=== PATIENT | female | born 2000 | race Caucasian/White ===

== ENCOUNTER 2018-04-03 23:55 | Emergency (ER) | payer BC, SELFPAY ==
[2018-04-03 23:59] VITALS: BP 134/70; PULSE 74; RESP 20; TEMP 36.5; O2SAT 100
[2018-04-04 00:12] LABS: Bilirubin Negative (Negative); Blood Moderate (Negative); Clarity Sl Cloudy; Glucose Negative (Negative); Ketones Negative (Negative); Leukocyte Esterase Small (Negative); Nitrite Negative (Negative); Urobilinogen 0.2 EU/dL (Up TO 0.2); pH 7.5 (5-8)
--- NOTE | 2018-04-04 00:15 | W.ED.GENAD ---
Discharge Plan Disposition Patient Disposition: HOME Condition: Good Discharge Details Chief Complaint: Urinary Clinical Impression: UTI (urinary tract infection) Primary Care Provider: Camacho Uribe ED Provider: Miko Vale Home Meds and New Rx's Prescriptions: New phenazopyridine 100 mg tablet 100 mg PO TID Qty: 5 RF: 0 nitrofurantoin monohyd/m-cryst 100 mg capsule 100 mg PO BID Qty: 9 RF: 0 Continue triamcinolone acetonide 15 GM cream 1 applic Topical BID PRN Qty: 30 RF: 0 albuterol sulfate [ProAir HFA] 8.5 GM HFA aerosol inhaler 2 puff Inhalation q 4hr-6 hr prn Qty: 1 RF: 0 norgestimate-ethinyl estradiol [TriNessa Lo] 0.18/0.215/0.25 mg-25 mcg tablet 1 tab PO DAILY Qty: 28 RF: 2 Discharge Instructions Instructions: Phenazopyridine (By mouth), Nitrofurantoin Combination (By mouth), Urinary Tract Infection in Women (ED) Additional Instructions: Follow-up with primary care next week if not better. Return to ED for fever, vomiting, flank pain. Referrals: Camacho Uribe. [Primary Care Provider] - Medical Decision Making Patient presenting with urinary tract infection suggestive of cystitis. She has no systemic symptoms. Urine test is negative. Urine dip positive for leukocytes and blood. Urine micro is positive with white cells and bacteria and very few epithelial cells. Patient will be started on Pyridium and Macrobid. Follow-up with primary care next week if not better. Return to ED for fever, vomiting, flank pain. Lab Data Lab results reviewed: Yes I reviewed the patient's lab results. HPI General Mode of arrival: ambulatory. Date/Time Provider Initiated Documentation: 04/04/18 00:12. Limitations to Documentation: no limitations. Information obtained by: patient. HPI Narrative: Patient presents with suprapubic pain and urinary discomfort. Symptoms started this morning. She has had bladder infections before and this feels the same. She has had no fevers or chills. She has no flank pain or abdominal pain. She has no vaginal bleeding or discharge. Related Data Home Medications Medication Instructions Recorded Confirmed albuterol sulfate [ProAir HFA] 2 puff INHALATION q 4hr-6 hr prn 07/25/17 04/04/18 #1 inhaler triamcinolone acetonide 1 applic TOPICAL BID PRN #30 gram 07/25/17 04/04/18 norgestimate 0.18 mg/0.215 mg/0.25 1 tab PO DAILY #28 tab 03/20/18 04/04/18 mg-ethinyl estradiol 25 mcg tablet nitrofurantoin monohyd/m-cryst 100 mg PO BID #9 cap 04/04/18 phenazopyridine 100 mg PO TID #5 tab 04/04/18 Previous Rx's Medication Instructions Recorded norgestimate 0.18 mg/0.215 mg/0.25 1 tab PO DAILY #28 tab 03/20/18 mg-ethinyl estradiol 25 mcg tablet nitrofurantoin monohyd/m-cryst 100 mg PO BID #9 cap 04/04/18 phenazopyridine 100 mg PO TID #5 tab 04/04/18 Allergies Allergy/AdvReac Type Severity Reaction Status Date / Time human papillomavirus AdvReac Intermediate ARM Unverified 04/04/18 00:01 vaccine, quadr NUMBNESS, DIZZINESS, ALMOST PASSED OUT General Stated Complaint: Urinary YAIR: 4 Review of Systems Constitutional Denies chills and Denies fever(s) Gastrointestinal Denies abdominal pain, Denies diarrhea, Denies nausea and Denies vomiting Genitourinary Denies hematuria, Reports dysuria, Denies pelvic pain and Denies flank pain PFSH Family History Mother No problems noted. Father No problems noted. Sister No problems noted. Brother No problems noted. Grandfather Depression Heart disease Grandfather Essential hypertension Cerebrovascular accident Grandmother Essential hypertension Hyperlipidemia Neoplasm Grandmother Essential hypertension Cerebrovascular accident FAMILY HISTORY Gout Migraine Kidney stones Social History Smoking/Tobacco Use Status: Never Exam Const General: cooperative, healthy appearing and comfortable Orientation: alert and oriented x3 HENMT Head: normocephalic and atraumatic GI Palpation: soft, not firm and nontender Back/Spine/Pelvis Back: no CVA tenderness Neuro General: alert, oriented x3, no focal motor deficits and CN's II-XI intact bilaterally Course Vital Signs Temperature 97.7 F 04/03/18 23:59 Pulse 74 04/03/18 23:59 Respiratory Rate 20 04/03/18 23:59 Blood Pressure 134/70 04/03/18 23:59 Pulse Oximetry 100 04/03/18 23:59 Temperature 97.7 F 04/03/18 23:59 Temperature Source Temporal Artery Scan 04/03/18 23:59 Pulse 74 04/03/18 23:59 Respiratory Rate 20 04/03/18 23:59 Respiratory Effort Non-Labored 04/04/18 00:01 Blood Pressure 134/70 04/03/18 23:59 Pulse Oximetry 100 04/03/18 23:59 Oxygen Delivery Method Room Air 04/03/18 23:59 Oxygen Flow Rate 0 04/03/18 23:59 Pain Level 7 04/04/18 00:02 Lab/Test Results Lab/Test Results: Laboratory Tests Range/Units 04/04/18 00:04 Urine Color (Yellow) Yellow Urine Clarity Sl cloudy Urine pH (5-8) 7.5 Ur Specific [place] (1.005-1.025) 1.020 Urine Protein (Negative) mg/dL Negative Urine Ketones (Negative) mg/dL Negative Urine Blood (Negative) Moderate H Urine Nitrite (Negative) Negative Urine Bilirubin (Negative) Negative Urine Urobilinogen (Up TO 0.2) EU/dL 0.2 Ur Leukocyte Esterase (Negative) Small H Urine Glucose (Negative) mg/dL Negative POC- Test(urine) Negative
[2018-04-04 00:18] LABS: Bacteria Moderate HPF (Negative); C & S Indicated? Yes; Casts Negative LPF (Negative); Crystals Negative HPF (Negative); Epithelial Cells Few HPF (Negative); Mucus Negative (Negative); WBC >50 HPF (0-5)
--- NOTE | 2018-04-04 00:20 | ED.GENADUL_ITS ---
Discharge Plan Disposition Patient Disposition: HOME Condition: Good Discharge Details Chief Complaint: Urinary Clinical Impression: UTI (urinary tract infection) Primary Care Provider: Camacho Uribe ED Provider: Miko Vale Home Meds and New Rx's Prescriptions: New phenazopyridine 100 mg tablet 100 mg PO TID Qty: 5 RF: 0 nitrofurantoin monohyd/m-cryst 100 mg capsule 100 mg PO BID Qty: 9 RF: 0 Continue triamcinolone acetonide 15 GM cream 1 applic Topical BID PRN Qty: 30 RF: 0 albuterol sulfate [ProAir HFA] 8.5 GM HFA aerosol inhaler 2 puff Inhalation q 4hr-6 hr prn Qty: 1 RF: 0 norgestimate-ethinyl estradiol [TriNessa Lo] 0.18/0.215/0.25 mg-25 mcg tablet 1 tab PO DAILY Qty: 28 RF: 2 Discharge Instructions Instructions: Phenazopyridine (By mouth), Nitrofurantoin Combination (By mouth) , Urinary Tract Infection in Women (ED) Additional Instructions: Follow-up with primary care next week if not better. Return to ED for fever, vomiting, flank pain. Referrals: Camacho Uribe. [Primary Care Provider] - Medical Decision Making Patient presenting with urinary tract infection suggestive of cystitis. She has no systemic symptoms. Urine test is negative. Urine dip positive for leukocytes and blood. Urine micro is positive with white cells and bacteria and very few epithelial cells. Patient will be started on Pyridium and Macrobid. Follow-up with primary care next week if not better. Return to ED for fever, vomiting, flank pain. Lab Data Lab results reviewed: Yes I reviewed the patient's lab results. HPI General Mode of arrival: ambulatory . Date/Time Provider Initiated Documentation: 04/04/18 00:12 . Limitations to Documentation: no limitations . Information obtained by: patient . HPI Narrative: Patient presents with suprapubic pain and urinary discomfort. Symptoms started this morning. She has had bladder infections before and this feels the same. She has had no fevers or chills. She has no flank pain or abdominal pain. She has no vaginal bleeding or discharge. Related Data Home Medications Medication Instructions Recorded Confirmed albuterol sulfate [ProAir HFA] 2 puff INHALATION q 4hr-6 hr prn 07/25/17 #1 inhaler triamcinolone acetonide 1 applic TOPICAL BID PRN #30 gram 07/25/17 04/04/18 norgestimate 0.18 mg/0.215 mg/0.25 1 tab PO DAILY #28 tab 03/20/18 04/04/18 mg-ethinyl estradiol 25 mcg tablet nitrofurantoin monohyd/m-cryst 100 mg PO BID #9 cap 04/04/18 phenazopyridine 100 mg PO TID #5 tab 04/04/18 Previous Rx's Medication Instructions Recorded norgestimate 0.18 mg/0.215 mg/0.25 1 tab PO DAILY #28 tab 03/20/18 mg-ethinyl estradiol 25 mcg tablet nitrofurantoin monohyd/m-cryst 100 mg PO BID #9 cap 04/04/18 phenazopyridine 100 mg PO TID #5 tab 04/04/18 Allergies Allergy/AdvReac Type Severity Reaction Status Date / Time human papillomavirus AdvReac Intermediate ARM Unverified 04/04/18 00:01 vaccine, quadr NUMBNESS, DIZZINESS, ALMOST PASSED OUT General Stated Complaint: Urinary YAIR: 4 Review of Systems Constitutional Denies chills and Denies fever(s) Gastrointestinal Denies abdominal pain, Denies diarrhea, Denies nausea and Denies vomiting Genitourinary Denies hematuria, Reports dysuria, Denies pelvic pain and Denies flank pain PFSH Family History Mother No problems noted. Father No problems noted. Sister No problems noted. Brother No problems noted. Grandfather Depression Heart disease Grandfather Essential hypertension Cerebrovascular accident Grandmother Essential hypertension Hyperlipidemia Neoplasm Grandmother Essential hypertension Cerebrovascular accident FAMILY HISTORY Gout Migraine Kidney stones Social History Smoking/Tobacco Use Status: Never Exam Const General: cooperative, healthy appearing and comfortable Orientation: alert and oriented x3 HENMT Head: normocephalic and atraumatic GI Palpation: soft, not firm and nontender Back/Spine/Pelvis Back: no CVA tenderness Neuro General: alert, oriented x3, no focal motor deficits and CN's II-XI intact bilaterally Course Vital Signs Temperature 97.7 F 04/03/18 23:59 Pulse 74 04/03/18 23:59 Respiratory Rate 20 04/03/18 23:59 Blood Pressure 134/70 04/03/18 23:59 Pulse Oximetry 100 04/03/18 23:59 Temperature 97.7 F 04/03/18 23:59 Temperature Source Temporal Artery Scan 04/03/18 23:59 Pulse 74 04/03/18 23:59 Respiratory Rate 20 04/03/18 23:59 Respiratory Effort Non-Labored 04/04/18 00:01 Blood Pressure 134/70 04/03/18 23:59 Pulse Oximetry 100 04/03/18 23:59 Oxygen Delivery Method Room Air 04/03/18 23:59 Oxygen Flow Rate 0 04/03/18 23:59 Pain Level 7 04/04/18 00:02 Lab/Test Results Lab/Test Results: Laboratory Tests Range/Units 04/04/18 00:04 Urine Color (Yellow) Yellow Urine Clarity Sl cloudy Urine pH (5-8) 7.5 Ur Specific [place] (1.005-1.025) 1.020 Urine Protein (Negative) mg/dL Negative Urine Ketones (Negative) mg/dL Negative Urine Blood (Negative) Moderate H Urine Nitrite (Negative) Negative Urine Bilirubin (Negative) Negative Urine Urobilinogen (Up TO 0.2) EU/dL 0.2 Ur Leukocyte Esterase (Negative) Small H Urine Glucose (Negative) mg/dL Negative POC- Test(urine) Negative
[2018-04-04] MEDS: Phenazopyridine 100 MG TAB PO (00:29)
[2018-04-04] MEDS: MacroBID 100 MG CAP PO (00:29)
[2018-04-04 00:30] VITALS: BP 134/70; PULSE 74; RESP 20; TEMP 36.5; O2SAT 100
== END 2018-04-04 00:39 | disposition home or self-care (01) ==
PROVIDERS: Emergency Provider Emergency Medicine; PCP Family Medicine
DX: N39.0 Urinary tract infection, site not specified (principal); Z87.440 Personal history of urinary (tract) infections
CPT/HCPCS: 81025; 87077; 99283; 81003; 81015; 87086; 87186

== ENCOUNTER 2019-12-20 12:19 | Outpatient (REF) | payer BC, SELFPAY ==
--- NOTE | 2019-12-20 11:00 | PAPFT_PTH ---
PATIENT: Namita Sapp LOC: [facility] U#:[id number] AGE/SX: 19/F ROOM: RE12/20/[address]: Angelica Thomas NP : 2000 BED: DIS: 12/20/2019 SPEC #: [id number] RECD: 12/20/19 12:56 STATUS: MITUL REApril #: [id number] SHELIA: 12/20/19 11:[address]: Angelica Thomas NP DEPT: [facility] Cytology RECD BY: Adrienne Black ENTERED: 12/20/19 12:56 SP TYPE: PAPFT ANGEL DR: Camacho Uribe MD Tissues: 1 - CX/ENDOCX FOR PAP SMEARS Procedures: PAP THIN PREP/UVM Screening Comments: [id number]
== END 2019-12-20 12:39 ==
LOC: LBN 12:19
PROVIDERS: PCP Family Medicine; Visit Provider Nurse Practitioner Women's Health
DX: Z12.4 Encounter for screening for malignant neoplasm of cervix (principal)
CPT/HCPCS: 88142

== ENCOUNTER 2021-01-09 08:14 | Emergency (ER) | payer BC, SELFPAY ==
--- NOTE | 2021-01-09 08:15 | RT.EKG_ITS ---
APPROVED REPORT Exam: Resting ECG Reason for Exam: Syncope Patient Location: E HR:91 bpm ECG Measurements Heart Rate 91 AXIS TN 114 P 61 QRSd 79 QRS 63 QT 364 T -5 QTc 448 Conclusion Sinus rhythm...normal P axis, V-rate 60- 99. No STEMI. T wave inversion in lead III. I have reviewed and interpreted ECG and agree with software generated interpretation.
[2021-01-09 08:22] VITALS: BP 132/73; PULSE 92; RESP 18; TEMP 36.6; O2SAT 100
[2021-01-09 08:24] VITALS: RESP 18
--- NOTE | 2021-01-09 08:26 | W.ED.GENAD ---
Discharge Plan Disposition Patient Disposition: HOME Condition: Stable Discharge Details Clinical Impression: Syncope Primary Care Provider: Camacho Uribe ED Provider: Delphine Larsen Home Meds and New Rx's Prescriptions: Continued norgestimate-ethinyl estradiol 0.18/0.215/0.25 mg-25 mcg tablet 1 tab PO DAILY Qty: 84 RF: 5 No Action albuterol sulfate [ProAir HFA] 90 mcg/actuation HFA aerosol inhaler 2 puff Inhalation q 4hr-6 hr prn Qty: 1 RF: 0 triamcinolone acetonide 0.5 % cream 1 applic Topical BID PRN Qty: 30 RF: 0 Discharge Instructions Instructions: Dehydration (ED), Syncope (ED) Additional Instructions: Follow up with primary care provider in 3-5 days. Return to ED sooner if any worsening or concerns. Increase oral fluids. Please take Tylenol or Ibuprofen with food every 4-6 hours as needed for pain and swelling. Please return for any additional syncopal episodes, new symptoms such as fever, headache, worsening dizziness, chest pain shortness of breath or any concerns. Referrals: Camacho Uribe. [Primary Care Provider] - 1 week Medical Decision Making 20-year-old female presents to the ER with chief complaint of syncope which occurred this morning. Patient states that she was out in the sun yesterday sustaining first-degree sunburn on her back woke up this morning to go to the bathroom was sitting on the toilet and had a syncopal episode. Patient states that she did not actually fall but she was lowered to the floor by her fianc?. Denies any head injury did not hit her head. Denies any neck or back pain. She has no complaints of pain upon arrival but does complain of some dizziness. Last menstrual period was approximately 3 weeks ago. She has a past medical history of asthma atopic dermatitis. EKG was reviewed by Arline Lindo ER attending, please see her official report. Normal sinus rhythm. There is some flipped T waves in lead III. CBC shows slightly elevated white blood cell count at 14.31, absolute neutrophils 10.92, this could be due to recent sunburn and syncopal episode. However cannot exclude infectious process at this time. Anion gap 12.4, BUN 10 creatinine 1.1 GFR greater than 60 glucose 107 calcium 8.3. Initial troponin is less than 0.05. Urinalysis shows 30 protein moderate blood 5-10 RBCs. No leukocytes no nitrites. I did consider head CT however patient not complaining of headache at this time and denies any head injury with episode. Dizziness improved with meclizine so CT was deferred. Patient reevaluation: She reports feeling better approximately 500 cc of normal saline has infused. Patient has received 25 mg of meclizine which patient reports has improved her symptoms somewhat. Discussed labs with patient who verbalizes understanding. Will re-eval after fluids are done infusing. Second patient reevaluation. Fluids are done, patient reports feeling improved. Denies dizziness currently. Remained hemodynamically stable throughout stay denies headache or any other complaints at this time. I did discuss follow-up with PCP in the next 3 to 5 days due to elevated white blood cell count, discussed strict return instructions patient verbalized understanding. HPI General Mode of arrival: ambulatory. Date/Time Provider Initiated Documentation: 01/09/21 08:14. Limitations to Documentation: no limitations. Information obtained by: patient, RN notes reviewed and old records reviewed. HPI Narrative: 20-year-old female presents to the ER with chief complaint of syncope which occurred this morning. Patient states that she was out in the sun yesterday sustaining first-degree sunburn on her back woke up this morning to go to the bathroom was sitting on the toilet and had a syncopal episode. Patient states that she did not actually fall but she was lowered to the floor by her fianc?. Denies any head injury did not hit her head. Denies any neck or back pain. She has no complaints of pain upon arrival but does complain of some dizziness. Last menstrual period was approximately 3 weeks ago. She has a past medical history of asthma atopic dermatitis. Related Data Home Medications Medication Instructions Recorded Confirmed albuterol sulfate 90 mcg/actuation 2 puff INHALATION q 4hr-6 hr prn 07/21/18 01/09/21 aerosol inhaler #1 inhaler triamcinolone acetonide 0.5 % 1 applic TOPICAL BID PRN #30 gm 12/09/18 01/09/21 topical cream norgestimate 0.18 mg/0.215 mg/0.25 1 tab PO DAILY #84 tab 12/20/19 01/09/21 mg-ethinyl estradiol 25 mcg tablet Previous Rx's Medication Instructions Recorded albuterol sulfate 90 mcg/actuation 2 puff INHALATION q 4hr-6 hr prn 07/21/18 aerosol inhaler #1 inhaler triamcinolone acetonide 0.5 % 1 applic TOPICAL BID PRN #30 gm 12/09/18 topical cream norgestimate 0.18 mg/0.215 mg/0.25 1 tab PO DAILY #84 tab 12/20/19 mg-ethinyl estradiol 25 mcg tablet Allergies Allergy/AdvReac Type Severity Reaction Status Date / Time human papillomavirus AdvReac Intermediate ARM Unverified 01/09/21 08:26 vaccine, quadr NUMBNESS, DIZZINESS, ALMOST PASSED OUT General Stated Complaint: Dizzy/Sync YAIR: 3 Review of Systems Narrative: Constitutional: Negative for weight loss, alert and oriented, well groomed, normal body habitus, appears comfortable. HEENT: Denies headaches, blurry vision, nasal discharge, sore throat, trouble swallowing. Chest: Denies chest pain, palpitations, irregular rhythm, hypertension. Respiratory: Denies Shortness of breath, cough, hemoptysis. GI: Denies abdominal pain, nausea, vomiting, diarrhea, constipation. : Denies dysuria, hematuria, flank pain, rectal bleeding. Neuro: Denies blurry vision, weakness, headache or facial numbness. Positive dizziness and syncopal episode. Hematologic: Denies easy bruising, intolerance to heat or cold, hair loss. [facility] Medical History Asthma Oral contraceptive use Family History Mother No problems noted. Father No problems noted. Sister No problems noted. Brother No problems noted. 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 Appears stated age. Normal body habitus. Head: Normocephalic, no trauma. Eyes: Pupils PERRLA, Red reflex noted, EOM's intact. Eyelids symmetrical without lesions, discharge, or swelling. ENT: Bilateral TM's WNL, External ear normal to inspection, no mastoid TTP, swelling, or erythema, Nasal turbinates WNL, no nasal discharge. Normal dentition, Posterior pharynx WNL, no exudate. Chest: RRR, Normal S1, S2, distal pulses intact. Resp: Lungs clear to auscultation bilaterally, no wheezes, rales, or rhonchi. Abdomen: Soft, non-distended, non-tender to palpation all 4 quadrants. Musculoskeletal: Normal gait, 5/5 strength to all four extremities. Skin: First-degree sunburn noted to her back. Capillary refill less than 2 sec. Neurologic: Cranial nerves II-XII intact. Alert and oriented x 3. DTR's intact. Hematologic/Lymphatic: No ecchymosis, no lymphadenopathy. Course Vital Signs Vital signs: Vital Signs Temperature 36.6 C 01/09/21 08:22 Pulse 92 H 01/09/21 08:22 Respiratory Rate 18 01/09/21 08:22 Blood Pressure 132/73 01/09/21 08:22 Pulse Oximetry 100 01/09/21 08:22 Temperature 36.6 C 01/09/21 08:22 Temperature Source Skin 01/09/21 08:22 Pulse 92 H 01/09/21 08:22 Respiratory Rate 18 01/09/21 08:24 Respiratory Effort Non-Labored 01/09/21 08:24 Respiratory Depth Normal 01/09/21 08:24 Respiratory Pattern Normal 01/09/21 08:24 Blood Pressure 132/73 01/09/21 08:22 Blood Pressure Position Sitting 01/09/21 08:22 Pulse Oximetry 100 01/09/21 08:22 Pain Level 2 01/09/21 08:22
[2021-01-09] MEDS: Meclizine 25 MG TAB PO (08:38)
[2021-01-09] MEDS: Normal Saline 1,000 ML 1000 ML IV (08:38)
[2021-01-09 08:48] LABS: Bilirubin Negative (Negative); Blood Moderate (Negative); Clarity Clear (Clear); Glucose Negative (Negative); Ketones Negative (Negative); Leukocyte Esterase Negative (Negative); Nitrite Negative (Negative); Urobilinogen 0.2 EU/dL (Up TO 0.2)
[2021-01-09 08:51] LABS: Bacteria Negative HPF (Negative); C & S Indicated? No; Casts Negative LPF (Negative); Crystals Negative HPF (Negative); Epithelial Cells Rare HPF (Negative); Mucus Negative (Negative); WBC Negative HPF (0-5)
[2021-01-09 09:10] LABS: Abs Immature Grans 0.06 10^3/uL (0.0-0.06); Absolute Basophil Count 0.04 10^3/uL (0.0-0.2); Absolute Eosinophil Count 0.06 10^3/uL (0.0-0.7); Absolute Lymphocyte Count 2.09 10^3/uL (1.2-3.4); Absolute Monocyte Count 1.14 10^3/uL (0.1-0.8); Absolute Neutrophil Count 10.92 10^3/uL (1.2-6.7); Basophils % 0.3; Eosinophils % 0.4; HCT 39.4 % (36.0-46.0); Immature Grans % 0.4; Lymphocytes % 14.6; MCH 29.1 pg (27.0-33.0); MCV 88.1 fL (80-95); MPV 8.6 fL (8.0-11.0); Neutrophils % 76.3; Nucleated RBC 0 %; Platelet Count 285 10^3/uL (130-400); RBC 4.47 10^6/uL (3.93-5.22); RDW 11.7 % (11.7-14.6); WBC 14.31 10^3/uL (4.4-10.8)
[2021-01-09 09:33] LABS: ALT 13 U/L (14-59); AST 10 U/L (15-37); Albumin 3.6 g/dL (3.4-5.0); Alkaline Phosphatase 61 U/L (46-116); Anion Gap 12.4 mmol/L (3-11); BUN 10 mg/dL (7-18); Bilirubin, Total 0.6 mg/dL (0.2-1.0); CO2 23.6 mmol/L (21.0-32.0); CREATININE 1.1 mg/dL (0.55-1.02); Calcium 8.3 mg/dL (8.5-10.1); Chloride 103 mmol/L (98-107); Glucose 107 mg/dL (74-106); Magnesium 1.9 mg/dL (1.8-2.4); Potassium 3.7 mmol/L (3.5-5.1); Sodium 139 mmol/L (136-145); Total Protein 7.4 g/dL (6.4-8.2)
[2021-01-09 09:35] LABS: Troponin I < 0.05 ng/mL (<0.06)
[2021-01-09 10:40] VITALS: BP 118/60; PULSE 91; RESP 18; TEMP 36.6; O2SAT 98
== END 2021-01-09 10:41 | disposition home or self-care (01) ==
PROVIDERS: Emergency Provider Registered Nurse Emergency; PCP Family Medicine
DX: R55 Syncope and collapse (principal)
CPT/HCPCS: 80053; 81025; 93005; 96360; 99284; 81003; 81015; 83735; 84484; 85025; 93010

== ENCOUNTER 2021-06-22 03:24 | Outpatient (CLI) | payer BC, SELFPAY ==
[2021-06-22 09:04] LABS: Calculated LDL 71 mg/dL (<100); Cholesterol 164 mg/dL (<200); Glucose 85 mg/dL (74-106); HDL Cholesterol 79 mg/dL (40-60); Triglyceride 73 mg/dL (<150)
[2021-06-22 09:12] LABS: C-Reactive Protein 0.71 mg/dL (0.0-0.3)
== END 2021-06-22 03:25 | disposition home or self-care (01) ==
LOC: LBO 03:25
PROVIDERS: PCP Family Medicine; Visit Provider Family Medicine
DX: E78.5 Hyperlipidemia, unspecified (principal); R73.9 Hyperglycemia, unspecified; M25.641 Stiffness of right hand, not elsewhere classified; M25.642 Stiffness of left hand, not elsewhere classified; F41.9 Anxiety disorder, unspecified; R41.89 Other symptoms and signs involving cognitive functions and awareness
CPT/HCPCS: 36415; 80061; 82947; 86140

== ENCOUNTER 2022-05-18 16:49 | Outpatient (REF) | payer BC, SELFPAY | END 2022-05-18 16:50 | disposition home or self-care (01) | LOC: NCHCN 16:49 | PROVIDERS: PCP Nurse Practitioner Family; Visit Provider Nurse Practitioner Family | DX: N39.0 Urinary tract infection, site not specified (principal) | CPT/HCPCS: 87086 ==

== ENCOUNTER 2022-06-19 03:05 | Outpatient (CLI) | payer BC, SELFPAY ==
[2022-06-19 09:09] LABS: HCT 40.1 % (36.0-46.0); HGB 13.3 g/dL (11.2-15.7); MCH 29.7 pg (27.0-33.0); MCHC 33.2 % (32.0-36.0); MCV 90 fL (80-95); MPV 8.8 fL (8.0-11.0); Platelet Count 287 10^3/uL (130-400); RBC 4.48 10^6/uL (3.93-5.22); RDW 11.9 % (11.7-14.6); RDW-SD 39.2 fL
[2022-06-19 09:33] LABS: ALT 26 U/L (14-59); AST 27 U/L (15-37); Albumin 4.1 g/dL (3.4-5.0); Alkaline Phosphatase 89 U/L (46-116); Anion Gap 7.4 mmol/L (3-11); BUN 11 mg/dL (7-18); Bilirubin, Total 0.4 mg/dL (0.2-1.0); CO2 28.6 mmol/L (21.0-32.0); CREATININE 0.8 mg/dL (0.55-1.02); Calcium 8.9 mg/dL (8.5-10.1); Chloride 102 mmol/L (98-107); Estimated GFR 105.45 (mL/min/1.73m2); Glucose 88 mg/dL (74-106); Potassium 4.4 mmol/L (3.5-5.1); Sodium 138 mmol/L (136-145); Total Protein 7.8 g/dL (6.4-8.2)
[2022-06-19 17:04] LABS: Rheumatoid Factor <8.6 IU/mL (<12.0)
== END 2022-06-19 03:06 | disposition home or self-care (01) ==
LOC: LBO 03:05
PROVIDERS: Family Medicine; PCP Nurse Practitioner Family; Visit Provider Nurse Practitioner Family
DX: Z00.00 Encounter for general adult medical examination without abnormal findings (principal); R23.3 Spontaneous ecchymoses; M25.59 Pain in other specified joint
CPT/HCPCS: 36415; 80053; 85027; 86431

== ENCOUNTER 2022-07-16 03:19 | Outpatient (CLI) | payer BC, OTHER, SELFPAY ==
[2022-07-16 14:11] LABS: TSH (W/Ref FT4) 2.38 uIU/mL (0.36-3.74)
== END 2022-07-16 03:20 | disposition home or self-care (01) ==
LOC: LBO 03:20
PROVIDERS: PCP Nurse Practitioner Family; Visit Provider Nurse Practitioner Family
DX: F41.9 Anxiety disorder, unspecified (principal); R53.83 Other fatigue; R63.5 Abnormal weight gain
CPT/HCPCS: 36415; 84443

== ENCOUNTER 2022-08-21 02:17 | Outpatient (CLI) | payer OTHER, SELFPAY ==
[2022-08-23 10:36] LABS: DHEA Sulfate 232 ug/dL (134-407)
[2022-08-27 16:06] LABS: Testosterone, Total 49 ng/dL (8-60)
== END 2022-08-21 02:18 | disposition home or self-care (01) ==
LOC: LBO 02:18
PROVIDERS: PCP Nurse Practitioner Family; Visit Provider Nurse Practitioner Women's Health
DX: N92.5 Other specified irregular menstruation (principal); R53.83 Other fatigue; R63.5 Abnormal weight gain
CPT/HCPCS: 36415; 82627; 84403

== ENCOUNTER 2023-03-03 08:54 | Outpatient (REF) | payer OTHER, SELFPAY ==
--- NOTE | 2023-03-03 08:25 | PAPFT_PTH ---
PATIENT: Namita Sapp LOC: [facility] U#:[id number] AGE/SX: 23/F ROOM: RE03/03/[address]: Angelica Thomas NP : 2000 BED: DIS: 03/03/2023 SPEC #: [id number] RECD: 03/03/23 12:57 STATUS: MITUL REApril #: [id number] SHELIA: 03/03/23 08:[address]: Angelica Thomas NP [facility]PT[facility] Cytology RECD BY: Adrienne Black ENTERED: 03/03/23 12:57 SP TYPE: PAPFT OTHR DR: Joselyn Richards NP Tissues: 1 - CX/ENDOCX FOR PAP SMEARS Procedures: PAP THIN PREP/UVM Screening Comments: [id number]
== END 2023-03-03 08:55 | disposition home or self-care (01) ==
LOC: LBN 08:54
PROVIDERS: PCP Nurse Practitioner Family; Visit Provider Nurse Practitioner Women's Health
DX: Z12.4 Encounter for screening for malignant neoplasm of cervix (principal)
CPT/HCPCS: 88142

== ENCOUNTER 2023-09-19 02:48 | Outpatient (CLI) | payer OTHER, SELFPAY ==
[2023-09-19 17:04] LABS: Hemoglobin A1C 5.3 % (<5.7)
[2023-09-19 17:17] LABS: Anion Gap 9.6 mmol/L (3-11); BUN 12 mg/dL (7-18); CO2 27.4 mmol/L (21.0-32.0); CREATININE 0.7 mg/dL (0.55-1.02); Calcium 8.8 mg/dL (8.5-10.1); Chloride 104 mmol/L (98-107); Estimated GFR 123.01 (mL/min/1.73m2); Ferritin 74 ng/mL (8-252); Glucose 92 mg/dL (74-106); Potassium 3.7 mmol/L (3.5-5.1); Sodium 141 mmol/L (136-145); TSH (W/Ref FT4) 1.67 uIU/mL (0.36-3.74)
[2023-09-19 19:06] LABS: Iron 61 ug/dL (50-170); Total Iron Binding Capacity 282 ug/dL (250-450); Transferrin Sat 22 % (15-50)
== END 2023-09-19 02:49 | disposition home or self-care (01) ==
LOC: LBO 02:49
PROVIDERS: PCP Nurse Practitioner Family; Visit Provider Nurse Practitioner Family
DX: R42 Dizziness and giddiness (principal)
CPT/HCPCS: 36415; 80048; 82728; 83036; 83540; 83550; 84443

== ENCOUNTER 2023-12-01 08:42 | Emergency (ER) | payer OTHER, SELFPAY ==
[2023-12-01 08:45] VITALS: BP 146/71; PULSE 92; RESP 18; TEMP 36.5; O2SAT 100
--- NOTE | 2023-12-01 09:00 | DI.US_ITS ---
Exam(s) US OB 1ST TRIMESTER EXAM: US OB 1ST TRIMESTER CLINICAL HISTORY: Cramping, Right Flank pain. COMPARISON: No exams were available for comparison TECHNIQUE: Transabdominal Transvaginal first trimester obstetrical ultrasound performed. FINDINGS: Sonographic images demonstrate a single intrauterine gestation. A yolk sac and pole are seen. Sonographically assessed gestational age based upon crown-rump length of 1.1 cm is: 7+ 1 Estimated date of delivery based on this ultrasound is: 18 July 2024 Estimated date of delivery based upon LMP: Unknown. heart rate motion is Dopplered at: 161 bpm. No free fluid identified. Both ovaries appear sonographically normal. Pelvic Measurments Uterus: 8.4 x 4.5 x 5.1 cm Rt Ovary: 3.0 x 2.5 x 1.8 cm Lt Ovary: 3.0 x 1.7 x 2.0 cm Heart Rate: 167BPM IMPRESSION: Single live intrauterine gestation measuring 7 weeks 1 day. DATA REPOSITORY:
--- NOTE | 2023-12-01 09:00 | DI.US_ITS ---
Exam(s) US ABDOMEN LIMITED EXAM: US ABDOMEN LIMITED CLINICAL HISTORY: Right Flank pain, TECHNIQUE: Ultrasound abdomen performed using standard protocol. COMPARISON: US ABDOMEN ULTRASOUND (P) from 06/09/2014 US US OB 1ST TRIMESTER from 12/01/2023 FINDINGS: LIVER: Normal size. Normalechogenicity. No focal liver lesions are seen.. GALLBLADDER: No evidence of cholelithiasis. No evidence of wall thickening. No pericholecystic fluid identified. DENNY'S SIGN: Negative. BILIARY SYSTEM: No intrahepatic or extrahepatic biliary ductal dilation. RIGHT KIDNEY: Normal size. No evidence of renal calculi. Mild prominence of right renal pelvis. No s uspicious renal mass. No cyst identified. PANCREAS: Normal where visualized. ABDOMINAL AORTA AND IVC: Visualized portions normal caliber. ASCITES: None seen. IMPRESSION: Mildly prominent right renal pelvis. Gallbladder and liver appear normal. DATA REPOSITORY:
--- NOTE | 2023-12-01 09:07 | ED.GENADUL_ITS ---
Discharge Plan Disposition Patient Disposition: Home Condition: Stable Discharge Details Clinical Impression: Lumbago, Pain of round ligament affecting , antepartum Primary Care Provider: Joselyn Richards ED Provider: Delphine Larsen Home Meds and New Rx's Prescriptions: Continued magnesium 200 mg tablet 200 mg PO DAILY albuterol sulfate [ProAir HFA] 90 mcg/actuation HFA aerosol inhaler 2 puff Inhalation q 4hr-6 hr prn Qty: 1 0RF metformin 500 mg tablet 500 mg PO BID Qty: 180 4RF Rx Instructions: Take 1 tablet twice a day One A Day Women's DHA 28 mg iron- 800 mcg combo pack PO triamcinolone acetonide 0.5 % cream 1 applic Topical BID PRN Qty: 30 0RF Discharge Instructions Instructions: Flank Pain (ED), First Trimester (ED) Additional Instructions: No evidence of kidney stones gallbladder issues or problems with the at this time. I do suspect that your symptoms are from musculoskeletal reasons including round ligament pain or lower back strain or sprain. No evidence of urinary tract infection at this time. Please follow-up as previously scheduled with your [employer] SUPERVISOR. Alternate ice and heat, you may apply topical Biofreeze or similar. You may take Tylenol 1 tablet every 4-6 hours as needed. Or as directed by your [employer] SUPERVISOR. Follow up with [employer] SUPERVISOR/primary care provider in 3-5 days. Return to ED sooner if any worsening or concerns. Referrals: Joselyn Richards, WET WASHER MACHINE [Primary Care Provider] - 1 week Discharge Data Discharge Date/Time-TO BE ENTERED AT DEPARTURE: 12/01/23 12:34 HPI General Mode of arrival: ambulatory . Date/Time Provider Initiated Documentation: 12/01/23 08:53 . Limitations to Documentation: no limitations . Information obtained by: patient, RN notes reviewed and old records reviewed . HPI Narrative: 23-year-old female prima presents to the ER with a chief complaint of lower abdominal cramping right flank pain that she describes as sharp shooting in her right flank and right lower back. She reports that it woke her up from sleep this morning around 730. She reports that the pain has subsided upon arrival to the ER. She denies any vaginal bleeding discharge or itching. She has been seen by women's wellness but has not had a confirmed test in the system. She is approximately 8 weeks last normal menstrual period was October 07, 2023. She denies any other associated symptoms or concerns denies any nausea vomiting she reports that at baseline she does have diarrhea and there has been no change there, on exam she does have some right CVA tenderness with palpation and right upper quadrant abdominal pain. She does have an exam consistent with approximately first trimester . past medical history includes polycystic ovarian syndrome she does take metformin for this, depression asthma anxiety. Related Data Home Medications Medication Instructions Recorded Confirmed magnesium 200 mg tablet 200 mg PO DAILY 02/27/22 09/15/23 metformin 500 mg tablet 500 mg PO BID #180 tabs 02/03/23 11/03/23 triamcinolone acetonide 0.5 % 1 applic topical BID PRN leg rash 02/25/23 11/03/23 topical cream #30 grams albuterol sulfate 90 mcg/actuation 2 puff inhalation q 4hr-6 hr prn 07/15/23 11/03/23 aerosol inhaler (ProAir HFA) ##1 vits 75-iron 28 mg-folic pkg PO 09/15/23 11/03/23 acid 800 mcg-omega-3 oral combo pack (One A Day Women's DHA) Previous Rx's Medication Instructions Recorded metformin 500 mg tablet 500 mg PO BID #180 tabs 02/03/23 triamcinolone acetonide 0.5 % 1 applic topical BID PRN leg rash 02/25/23 topical cream #30 grams albuterol sulfate 90 mcg/actuation 2 puff inhalation q 4hr-6 hr prn 07/15/23 aerosol inhaler (ProAir HFA) ##1 Allergies Allergy/AdvReac Type Severity Reaction Status Date / Time human papillomavirus AdvReac Intermediate ARM Verified 09/15/23 15:27 vaccine, quadr NUMBNESS, DIZZINESS, ALMOST PASSED OUT General Stated Complaint: [employer] SUPERVISOR YAIR: 3 Review of Systems All systems reviewed & are unremarkable except as noted in HPI and below Constitutional Constitutional: Reports system reviewed and no additional complaints, except as documented Cardiovascular Cardiovascular: Reports system reviewed and no additional complaints, except as documented Respiratory Respiratory: Reports system reviewed and no additional complaints, except as documented Gastrointestinal Gastrointestinal: Reports cramping and Reports diarrhea (Patient reports this is her baseline) Genitourinary Genitourinary: Reports as per HPI, Reports flank pain and Denies vaginal discharge Exam Narrative Exam Narrative: Constitutional: Alert and oriented x3. Appears stated age. Normal body habitus. Head: Normocephalic, no trauma. Eyes: Pupils PERRL, Eyelids symmetrical without lesions, discharge, or swelling. Chest: RRR, Normal S1, S2, distal pulses intact. Resp: Lungs clear to auscultation bilaterally, no wheezes, rales, or rhonchi. Abdomen: Soft, non-distended, consistent with first trimester gravidarum. : Right CVA tenderness Musculoskeletal: Moves all 4 extremities without difficulty. Course Vital Signs Vital signs: Vital Signs Temperature 36.5 C 12/01/23 08:45 Pulse 92 H 12/01/23 08:45 Respiratory Rate 18 12/01/23 08:45 Blood Pressure 146/71 H 12/01/23 08:45 Pulse Oximetry 100 12/01/23 08:45 Temperature 36.5 C 12/01/23 08:45 Temperature Source Tympanic 12/01/23 08:45 Pulse 92 H 12/01/23 08:45 Respiratory Rate 18 12/01/23 08:45 Respiratory Effort Normal 12/01/23 08:54 Blood Pressure 146/71 H 12/01/23 08:45 Blood Pressure Position Sitting 12/01/23 08:45 Pulse Oximetry 100 12/01/23 08:45 Oxygen Delivery Method Room Air 12/01/23 08:45 Oxygen Flow Rate 0 12/01/23 08:45 Pain Level 5 12/01/23 08:53 Comment Took APAP 1000mg at 0815 12/01/23 08:45 Medical Decision Making 23-year-old female prima presents to the ER with a chief complaint of lower abdominal cramping right flank pain that she describes as sharp shooting in her right flank and right lower back. She reports that it woke her up from sleep this morning around 730. She reports that the pain has subsided upon arrival to the ER. She denies any vaginal bleeding discharge or itching. She has been seen by women's wellness but has not had a confirmed test in the system. She is approximately 8 weeks last normal menstrual period was October 07, 2023. She denies any other associated symptoms or concerns denies any nausea vomiting she reports that at baseline she does have diarrhea and there has been no change there, on exam she does have some right CVA tenderness with palpation and right upper quadrant abdominal pain. She does have an exam consistent with approximately first trimester . past medical history includes polycystic ovarian syndrome she does take metformin for this, depression asthma anxiety. hCG quant ordered, urinalysis urine test and ultrasound pelvis vaginal transvaginal and abdomen limited to rule out kidney stone versus gallbladder. Other differential diagnosis includes round ligament pain. 04 05: Spoke with Dr. Dunn [employer] SUPERVISOR who is aware patient, no further recommendations at this time patient case and details discussed at this time pending urine labs and ultrasound. hCG quant is greater than 81,000, urinalysis shows moderate blood no leukocytes no nitrates no evidence of infection 5-10 RBCs. [facility] ultrasound shows intrauterine approximately 7 weeks 1 day, no subchorionic hemorrhage. Ultrasound limited abdomen results noted, no evidence for cholecystitis no gallstones no evidence for kidney stone no hydronephrosis. Results discussed with patient and family who verbalized understanding. Patient reports she feels much better. I did encourage her to keep her previously scheduled woman's wellness appointment she verbalized understanding. Discussed strict return instructions to return to the ER for any vaginal bleeding, worsening cramping not relieved by Tylenol. This text was generated using Tynker dictation system, please disregard any oddities of phrase or misspellings. Medical Records Medical records reviewed: Yes I reviewed the patient's medical records. Lab Data Lab results reviewed: Yes I reviewed the patient's lab results. Labs: Laboratory Tests Range/Units 12/01/23 12/01/23 09:15 10:10 Beta HCG, Quant (1-3) mIU/mL 95256 H Urine Color (Yellow) Yellow Urine Clarity (Clear) Clear Urine pH (5-8) 6.[address] (1.005-1.025) 1.010 Urine Protein (Neg-Trace) mg/dL Negative Urine Ketones (Negative) mg/dL Negative Urine Blood (Negative) Moderate H Urine Nitrite (Negative) Negative Urine Bilirubin (Negative) Negative Urine Urobilinogen (Up to 0.2) mg/dL 0.2 Ur Leukocyte Esterase (Negative) Negative Urine RBC (0-2) HPF 5-10 H Urine WBC (0-5) HPF 0-2 Ur Epithelial Cells (Negative) HPF Moderate Urine Crystals (Negative) HPF Rare Calcium Oxalate Urine Bacteria (Negative) HPF Rare Urine Casts (Negative) LPF Negative Urine Mucus (Negative) Negative Ur Culture Indicated? No Urine Glucose (Negative) mg/dL Negative Quality:SDOH Health Related Social Needs: No Data to Display PFSH All Active Problems Urinary frequency (Acute) Pain of round ligament affecting , antepartum (Acute) Lumbago (Acute) Left hip pain (Acute) (Acute) Numbness and tingling in left hand (Acute) Depression (Chronic) PCOS (polycystic ovarian syndrome) (Acute) hyperandrogenism and irregular menses. Considering metformin for TTC Weight gain (Acute) Fatigue (Acute) Abnormal bruising (Acute) Anxiety (Chronic) Asthma (Chronic) Medical History Hand joint stiff Well woman exam (no gynecological exam) Syncope Family History Mother No problems noted. Father No problems noted. Sister No problems noted. Brother No problems noted. Grandfather Depression Heart disease Grandfather Essential hypertension Stroke Grandmother Essential hypertension Hyperlipidemia Neoplasm BREAST Grandmother Essential hypertension Stroke FAMILY HISTORY Gout Migraine Kidney stones Social History Smoking/Tobacco Use Status: Never Second Hand Exposure: No Smoking risk assessment performed?: Yes Alcohol Intake: current Alcohol Intake frequency: holidays/special occasions only Alcohol type: beer, wine and hard liquor Drug use: Never Substance use type: does not use Adopted: No Caregiver/Support person: No Foster care: No Household members: spouse Housing: house Communication Needs: None Education Level: college Details: Bachelors Degree Do you need help understanding health information?: Rarely 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 Pets and animals: Yes Pets and animals: cat(s) and dog(s) Sexually active: Yes Do you think of yourself as: straight/heterosexual Current gender identity: female What is your relationship status?: How often do you talk on the phone with friends or family?: twice per week How often do you get together with friends or relatives?: once per week Do you belong to any clubs or organized social groups?: no Panel score (0-1 are the most socially isolated patients): 2 What type of physical activity do you participate in: walking, weight lifting and other Details: Gym 4-5x/week, Golf Duration: 45-60 minutes/day Frequency: 5-6 times per week Rona/Jehovah'S Witness: None Special rona needs: No Agree to transfusion: Yes Seatbelt use: always Helmet use: Yes Helmet use: always Drive intox or ride w/intox driver license agent: No Working smoke detector in home: Yes Carbon monox detector in home: Yes Firearms in home: Yes Firearms unloaded and locked: Yes Do you feel safe at home: Yes Do you feel safe in your relationship?: Yes Victim of physical abuse: No Victim of emotional abuse: No Victim of sexual abuse: No Female Reproductive History Menstrual Age of Menarche: 11 control method: none and condoms History History 0 Para Hx # Term Pregnancies Multiple births Hx # Pregnancies Ectopic pregnancies AB induced Hx Number of Living Children AB spontaneous
[2023-12-01 10:19] LABS: Bilirubin Negative (Negative); Blood Moderate (Negative); Clarity Clear (Clear); Glucose Negative (Negative); Ketones Negative (Negative); Leukocyte Esterase Negative (Negative); Nitrite Negative (Negative); Urobilinogen 0.2 mg/dL (Up to 0.2); pH 6.5 (5-8)
[2023-12-01 10:27] LABS: HCG Quant, Pregnancy 81920 mIU/mL (1-3)
[2023-12-01 10:31] LABS: Bacteria Rare HPF (Negative); C & S Indicated? No; Casts Negative LPF (Negative); Crystals Rare Calcium Oxalate HPF (Negative); Epithelial Cells Moderate HPF (Negative); Mucus Negative (Negative); WBC 0-2 HPF (0-5)
--- NOTE | 2023-12-01 11:57 | DI.VRAD_ITS ---
PROCEDURE INFORMATION: Exam: US Abdomen, Limited; Right Upper Quadrant Exam date and time: 12/01/2023 10:18 AM Age: 23 years old Clinical indication: Other: Right flank pain; TECHNIQUE: Imaging protocol: Real time ultrasound of the abdomen with image documentation. Limited exam focused on the right upper quadrant. COMPARISON: No relevant prior studies available. FINDINGS: Liver: The liver is not grossly cirrhotic in morphology. The liver is normal in echotexture. No gross focal hepatic mass. Longitudinal dimension of the liver is 14.9 cm. Gallbladder: Gallbladder physiologically distended, without evidence of gallstones or wall thickening. Negative sonographic Basurto's sign. Biliary ducts: No biliary dilatation. Common bile duct diameter is 5 mm. Pancreas: Visualized pancreas is unremarkable. Right kidney: Right kidney normal in echotexture. No right hydronephrosis. Small mildly prominent extrarenal pelvis. No right renal calculi. No suspicious right renal mass. Right kidney length 10.4 cm. Portal venous: Hepatopedal flow in the main portal vein. IMPRESSION: No evidence of cholelithiasis or acute cholecystitis. Dictated and Authenticated by: Aaliyah Arrington MD. Ordering:WESLEY Akers MD
--- NOTE | 2023-12-01 12:05 | DI.VRAD_ITS ---
PROCEDURE INFORMATION: Exam: US Duplex Artery and Vein of the Abdominal and/or Reproductive Organs. Complete Ovaries Exam date and time: 12/01/2023 10:38 AM Clinical indication: Other: Right flank pain; Gestational age or lmp: 10/07/2023; TECHNIQUE: Imaging protocol: Real-time duplex ultrasound scan of the arterial and venous flow with color Doppler flow and spectral waveform analysis with image documentation. Duplex exam was performed to evaluate for torsion and other vascular conditions. COMPARISON: No relevant prior studies available. FINDINGS: Right ovary/adnexa: Normal arterial and venous Doppler waveforms. No evidence of ovarian torsion. Left ovary/adnexa: Normal arterial and venous Doppler waveforms. No evidence of ovarian torsion. IMPRESSION: Normal ovarian arterial and venous vascular flow. No evidence ovarian torsion. PROCEDURE INFORMATION: Exam: US First Trimester, Transabdominal and US , Transvaginal Exam date and time: 12/01/2023 10:38 AM Age: 23 years old Clinical indication: Other: Right flank pain; Gestational age or lmp: 10/07/2023; LABS AND CLINICAL REPORTS: Last menstrual period start date: 10/07/2023 Gestational age (Established): 7 w 6 d Estimated due date (Established): 07/13/2024 TECHNIQUE: Imaging protocol: Real-time transabdominal obstetrical ultrasound of the maternal pelvis and a first trimester , less than 14 weeks 0 days, with image documentation. Transvaginal imaging was used for better evaluation of the fetus, adnexa, and/or cervix. COMPARISON: US ABDOMEN LIMITED 12/01/2023 10:18 AM FINDINGS: GESTATION: Gestation: A single intrauterine gestation is identified.. A gestational sac containing a pole and yolk sac is seen at the level of the uterine fundus. Chorioamniotic separation is noted. Embryonic/ heart rate: 161 bpm. heart motion is seen. Extra-embryonic membranes/Placenta: Unremarkable. No subchorionic bleed. Amniotic/Chorionic fluid: Not formally evaluated due to early gestational age. BIOMETRY: Gestational age (AUA): 7 w 1 d. Estimated due date (AUA): 07/18/2024 [place] rump length (CRL): 1.1 mm. EGA (CRL) is 7 w 1 d MATERNAL: Uterus: Uterus measures 8.4 cm x 4.5 cm x 5.1 cm. The uterus is normal in echotexture and demonstrates no focal mass. Cervix: The cervix is closed, measuring approximately 3.8 cm in length. Right ovary/adnexa: Right ovary measures 3 cm x 2.5 cm x 1.8 cm. Normal in appearance. Normal arterial and venous flow. Left ovary/adnexa: Left ovary measures 3 cm x 1.7 cm x 2 cm. Normal in appearance. Normal arterial and venous flow. Intraperitoneal space: No intraperitoneal free fluid. Soft tissues: No subchorionic hematoma. Other findings: No free fluid is seen in the pelvis. IMPRESSION: 1. Single viable intrauterine gestation. Estimated gestational age is 7 weeks 1 day based on the crown-rump length. 2. No evidence of subchorionic hematoma. COMMENTS: This limited study was ordered as an emergency procedure through the emergency department. This study does not replace the need for full biometry and anatomical evaluation, which can be scheduled routinely through the testing unit. Dictated and Authenticated by: Aaliyah Arrington MD. Ordering:WESLEY Akers MD
[2023-12-01 12:24] VITALS: BP 124/58; PULSE 87; O2SAT 100
[2023-12-01 12:31] VITALS: BP 124/58; PULSE 87; RESP 18; TEMP 36.5; O2SAT 100
== END 2023-12-01 12:34 | disposition home or self-care (01) ==
PROVIDERS: Emergency Provider Registered Nurse Emergency; PCP Nurse Practitioner Family
DX: O26.891 Other specified pregnancy related conditions, first trimester (principal); M54.50 Low back pain, unspecified; R10.2 Pelvic and perineal pain
CPT/HCPCS: 36415; 81025; 99284; 76705; 76801; 81003; 81015; 84702; 99283

== ENCOUNTER 2023-12-09 22:29 | Emergency (ER) | payer OTHER, SELFPAY ==
[2023-12-09 22:33] VITALS: BP 137/69; PULSE 96; RESP 16; TEMP 36.7; O2SAT 99
[2023-12-09 23:02] LABS: Bilirubin Negative (Negative); Blood Small (Negative); Clarity Clear (Clear); Glucose Negative (Negative); Ketones 15 mg/dL (Negative); Leukocyte Esterase Negative (Negative); Nitrite Negative (Negative); Urobilinogen 0.2 mg/dL (Up to 0.2)
[2023-12-09 23:05] VITALS: BP 137/69; PULSE 96; RESP 16; TEMP 36.7; O2SAT 99
[2023-12-09 23:11] LABS: Bacteria Negative HPF (Negative); C & S Indicated? C&S Done As Ordered; Casts Negative LPF (Negative); Crystals Negative HPF (Negative); Epithelial Cells Few HPF (Negative); Mucus Negative (Negative); Other Cells Rare Transitional (Negative); RBC 0-2 HPF (0-2); WBC 0-2 HPF (0-5)
--- NOTE | 2023-12-09 23:51 | ED.GENADUL_ITS ---
Discharge Plan Disposition Patient Disposition: Home Condition: Good Discharge Details Clinical Impression: Urinary frequency Primary Care Provider: Joselyn Richards ED Provider: Jaydon Ybarra Home Meds and New Rx's Prescriptions: No Action magnesium 200 mg tablet 200 mg PO DAILY albuterol sulfate [ProAir HFA] 90 mcg/actuation HFA aerosol inhaler 2 puff Inhalation q 4hr-6 hr prn Qty: 1 0RF metformin 500 mg tablet 500 mg PO BID Qty: 180 4RF Rx Instructions: Take 1 tablet twice a day One A Day Women's DHA 28 mg iron- 800 mcg combo pack PO triamcinolone acetonide 0.5 % cream 1 applic Topical BID PRN Qty: 30 0RF Discharge Instructions Instructions: Urinary Urgency and Frequency (DC) Additional Instructions: At this time your urinalysis shows no evidence of infection. You do have evidence of mild dehydration, please make sure you are drinking plenty of fluids regularly. I suspect that your urinary frequency is secondary to a component of , however please monitor your symptoms closely, and have your urine rechecked on at your OB appointment. If you notice any worsening of your symptoms, or any new symptoms such as vomiting, diarrhea, fever, chills, shortness of breath, chest pain, numbness, weakness, or fainting , please return immediately to the emergency department for reevaluation. Please follow up with your primary care provider as soon as possible for reassessment and reevaluation. As always, it was a pleasure participating in your medical care today. Referrals: Elma Loera MD [ [facility] STAFF PHYSICIAN] - Joselyn Richards NP [Primary Care Provider] - [facility] General Date/Time Provider Initiated Documentation: 12/09/23 22:30 . HPI Narrative: 23-year-old female with a past medical history of PCOS, currently on metformin for that who is a 8 weeks presents today for evaluation of urinary frequency. Patient states that for the last 3 to 4 days she has had a mild cramping. No vaginal bleeding or discharge though. No dysuria. However over the last 24 to 48 hours she has had mild increase in urinary frequency. Blood. Still no dysuria or other complaints. She has had urinary tract infections before which are usually associated with pain and frequency, so she came for evaluation. She denies fever or chills. She denies vomiting or diarrhea. She currently has no pain or flank pain or cramping at this time. She denies any other complaints at this time. No other modifying factors. Related Data Home Medications Medication Instructions Recorded Confirmed magnesium 200 mg tablet 200 mg PO DAILY 02/27/22 09/15/23 metformin 500 mg tablet 500 mg PO BID #180 tabs 02/03/23 11/03/23 triamcinolone acetonide 0.5 % 1 applic topical BID PRN leg rash 02/25/23 11/03/23 topical cream #30 grams albuterol sulfate 90 mcg/actuation 2 puff inhalation q 4hr-6 hr prn 07/15/23 11/03/23 aerosol inhaler (ProAir HFA) ##1 vits 75-iron 28 mg-folic pkg PO 09/15/23 11/03/23 acid 800 mcg-omega-3 oral combo pack (One A Day Women's DHA) Previous Rx's Medication Instructions Recorded metformin 500 mg tablet 500 mg PO BID #180 tabs 02/03/23 triamcinolone acetonide 0.5 % 1 applic topical BID PRN leg rash 02/25/23 topical cream #30 grams albuterol sulfate 90 mcg/actuation 2 puff inhalation q 4hr-6 hr prn 07/15/23 aerosol inhaler (ProAir HFA) ##1 Allergies Allergy/AdvReac Type Severity Reaction Status Date / Time human papillomavirus AdvReac Intermediate ARM Verified 09/15/23 15:27 vaccine, quadr NUMBNESS, DIZZINESS, ALMOST PASSED OUT General Stated Complaint: Urinary YAIR: 4 Review of Systems All systems reviewed & are unremarkable except as noted in HPI and below Exam Narrative Exam Narrative: 1.Const: Well-nourished, Well-developed, appearing stated age 2.Eyes: PERRL, no conjunctival injection, and symmetrical lids. 3.ENT: Atraumatic external nose and ears. Moist MM. Neck: Symmetric, trachea midline, No thyromegaly. 4.CVS: +S1/S2, No murmurs or gallops. Peripheral pulses 2+ and equal in all extremities. Brisk capillary refill in all extremities. 5.RESP: Unlabored respiratory effort. Clear to auscultation bilaterally. No wheezes rales or rhonchi 6.GI: Soft, Nontender/Nondistended, No hepatosplenomegaly. No guarding or r ebound. 7.MSK: Normocephalic/Atraumatic, Extremities w/o deformity or ttp No cyanosis or clubbing, Normal movement of all extremities 8.Skin: Warm, Dry. No rashes or lesions. 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 Sensation grossly intact, no focal neurologic deficits. 10.Psych: (AAO) x3. Appropriate mood and affect Course Vital Signs Vital signs: Vital Signs Temperature 36.7 C 12/09/23 22:33 Pulse 96 H 12/09/23 22:33 Respiratory Rate 16 12/09/23 22:33 Blood Pressure 137/69 12/09/23 22:33 Pulse Oximetry 99 12/09/23 22:33 Temperature 36.7 C 12/09/23 23:05 Pulse 96 H 12/09/23 23:05 Respiratory Rate 16 12/09/23 23:05 Respiratory Effort Normal, Non-Labored 12/09/23 23:04 Blood Pressure 137/69 12/09/23 23:05 Pulse Oximetry 99 12/09/23 23:05 Oxygen Delivery Method Room Air 12/09/23 23:05 Oxygen Flow Rate 0 12/09/23 22:33 Pain Level 1 12/09/23 23:05 Lab/Test Results Lab/Test Results: 12/09/23 22:45 Urine - Voided Urine Culture - Pending Laboratory Tests Range/Units 12/09/23 22:45 Urine Color (Yellow) Yellow Urine Clarity (Clear) Clear Urine pH (5-8) 6.0 Ur Specific Alexander (1.005-1.025) 1.010 Urine Protein (Neg-Trace) mg/dL Negative Urine Ketones (Negative) mg/dL 15 H Urine Blood (Negative) Small H Urine Nitrite (Negative) Negative Urine Bilirubin (Negative) Negative Urine Urobilinogen (Up to 0.2) mg/dL 0.2 Ur Leukocyte Esterase (Negative) Negative Urine RBC (0-2) HPF 0-2 Urine WBC (0-5) HPF 0-2 Ur Epithelial Cells (Negative) HPF Few Urine Crystals (Negative) HPF Negative Urine Bacteria (Negative) HPF Negative Urine Casts (Negative) LPF Negative Urine Mucus (Negative) Negative Urine Other (Negative) Rare Transitional Ur Culture Indicated? C&S Done As Ordered Urine Glucose (Negative) mg/dL Negative Medical Decision Making 23-year-old female with a past medical history of PCOS, currently on metformin for that who is a 8 weeks presents today for evaluation of urinary frequency. Patient states that for the last 3 to 4 days she has had a mild cramping. No vaginal bleeding or discharge though. No dysuria. However over the last 24 to 48 hours she has had mild increase in urinary frequency. Blood. Still no dysuria or other complaints. She has had urinary tract infections before which are usually associated with pain and frequency, so she came for evaluation. She denies fever or chills. She denies vomiting or diarrhea. She currently has no pain or flank pain or cramping at this time. She denies any other complaints at this time. No other modifying factors. Exam demonstrates well-appearing female, no abdominal or flank tenderness. No pain at McBurney's point, negative Basurto sign. Patient appears well, vital signs stable. Urinalysis was ordered and shows no evidence of urinary tract infection. There are mild ketones, and small amount of hemoglobin but no significant RBCs, WBCs, leuk esterase or nitrites. Symptoms appear inconsistent with kidney stone, UTI, pyelonephritis, appendicitis or other acute life- threatening etiology. Bedside limited ultrasound was performed, fetus is present on ultrasound, I am not able to visualize a heartbeat, but this is secondary to technical challenge with the probe and developmental stage. Patient otherwise looks unremarkable, with no signs of an acute surgical abdomen or other abnormalities. No indication for antibacterial treatment at this time. Symptoms inconsistent with miscarriage. Suspect the frequency may be secondary to . At this time I do not see an indication for emergent blood work or further imaging. Patient has follow-up with Dr. Loera this week, which I feel is very reasonable. No other interventions indicated at this time. Patient will be discharged home. I discussed red flags which would indicate return or would indicate evidence of concerning symptomatology meriting treatment. Patient understands. I have extensively reviewed the treatment plan and discharge instructions with the patient and their family. I have addressed all patient concerns at this time. The patient and family was made aware of what symptoms to monitor for that would warrant a return to the emergency department. Discussed the plan with the patient and family, they demonstrate verbal understanding and agreement with our assessment and plan at this time. The documentation in this chart was dictated using [employer] dictation software. Please excuse any dictation errors. Quality:SDOH Health Related Social Needs: No Data to Display PFSH All Active Problems Urinary frequency (Acute) Pain of round ligament affecting , antepartum (Acute) Lumbago (Acute) Left hip pain (Acute) (Acute) Numbness and tingling in left hand (Acute) Depression (Chronic) PCOS (polycystic ovarian syndrome) (Acute) hyperandrogenism and irregular menses. Considering metformin for TTC Weight gain (Acute) Fatigue (Acute) Abnormal bruising (Acute) Anxiety (Chronic) Asthma (Chronic) Medical History Hand joint stiff Well woman exam (no gynecological exam) Syncope Family History Mother No problems noted. Father No problems noted. Sister No problems noted. Brother No problems noted. Grandfather Depression Heart disease Grandfather Essential hypertension Stroke Grandmother Essential hypertension Hyperlipidemia Neoplasm BREAST Grandmother Essential hypertension Stroke FAMILY HISTORY Gout Migraine Kidney stones Social History Smoking/Tobacco Use Status: Never Second Hand Exposure: No Smoking risk assessment performed?: Yes Alcohol Intake: current Alcohol Intake frequency: holidays/special occasions only Alcohol type: beer, wine and hard liquor Drug use: Never Substance use type: does not use Adopted: No Caregiver/Support person: No Foster care: No Household members: spouse Housing: house Communication Needs: None Education Level: college Details: Bachelors Degree Do you need help understanding health information?: Rarely 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 Pets and animals: Yes Pets and animals: cat(s) and dog(s) Sexually active: Yes Do you think of yourself as: straight/heterosexual Current gender identity: female What is your relationship status?: How often do you talk on the phone with friends or family?: twice per week How often do you get together with friends or relatives?: once per week Do you belong to any clubs or organized social groups?: no Panel score (0-1 are the most socially isolated patients): 2 What type of physical activity do you participate in: walking, weight lifting and other Details: Gym 4-5x/week, Golf Duration: 45-60 minutes/day Frequency: 5-6 times per week Rona/Sikh: None Special rona needs: No Agree to transfusion: Yes Seatbelt use: always Helmet use: Yes Helmet use: always Drive intox or ride w/intox wrecking car driver: No Working smoke detector in home: Yes Carbon monox detector in home: Yes Firearms in home: Yes Firearms unloaded and locked: Yes Do you feel safe at home: Yes Do you feel safe in your relationship?: Yes Victim of physical abuse: No Victim of emotional abuse: No Victim of sexual abuse: No Female Reproductive History Menstrual Age of Menarche: 11 control method: none and condoms History History 0 Para Hx # Term Pregnancies Multiple births Hx # Pregnancies Ectopic pregnancies AB induced Hx Number of Living Children AB spontaneous
== END 2023-12-09 23:57 | disposition home or self-care (01) ==
PROVIDERS: Emergency Provider Student in an Organized Health Care Education/Training Program; PCP Nurse Practitioner Family
DX: R35.0 Frequency of micturition (principal); R39.15 Urgency of urination; R25.2 Cramp and spasm; Z87.440 Personal history of urinary (tract) infections; O26.891 Other specified pregnancy related conditions, first trimester
CPT/HCPCS: 99281; 81003; 81015; 87086; 99283

== ENCOUNTER 2024-01-01 01:57 | Outpatient (CLI) | payer OTHER, SELFPAY ==
[2024-01-01 14:39] LABS: Panorama Kit Sent via Fed Ex
[2024-01-01 14:55] LABS: Abs Immature Grans 0.09 10^3/uL (0.0-0.06); Absolute Basophil Count 0.06 10^3/uL (0.0-0.2); Absolute Eosinophil Count 0.08 10^3/uL (0.0-0.7); Absolute Lymphocyte Count 2.34 10^3/uL (1.2-3.4); Absolute Monocyte Count 0.65 10^3/uL (0.1-0.8); Basophils % 0.4 %; Eosinophils % 0.5 %; HCT 38.2 % (36.0-46.0); HGB 13.1 g/dL (11.2-15.7); Immature Grans % 0.6 %; Lymphocytes % 14.8 %; MCH 29.6 pg (27.0-33.0); MCHC 34.3 % (32.0-36.0); MCV 86 fL (80-95); MPV 8.5 fL (8.0-11.0); Monocytes % 4.1 %; Neutrophils % 79.6 %; Platelet Count 369 10^3/uL (130-400); RBC 4.43 10^6/uL (3.93-5.22); RDW-SD 37.6 fL; WBC 15.83 10^3/uL (4.4-10.8)
[2024-01-02 09:44] LABS: Hepatitis B Surface Ag Negative (Negative)
[2024-01-02 10:16] LABS: Hepatitis C Ab w Rflx HCV PCR Negative (Negative)
[2024-01-02 10:24] LABS: HIV-1/2 Ag & Ab Screen Negative (Negative)
[2024-01-02 12:56] LABS: Varicella IgG Antibody Positive (See Note)
[2024-01-02 13:01] LABS: Rubella IgG Ab (UVM) Positive (See Note)
[2024-01-03 16:02] LABS: Syphilis IgG w/Reflex Nonreactive (Nonreactive)
[2024-01-05 16:52] LABS: Specimen WB Whole Blood
[2024-01-12 10:48] LABS: Result Summary NEGATIVE; Specimen WB Whole Blood
== END 2024-01-01 01:58 | disposition home or self-care (01) ==
LOC: LBO 01:57
PROVIDERS: Advanced Practice Midwife; PCP Nurse Practitioner Family; Visit Provider Advanced Practice Midwife
DX: Z34.91 Encounter for supervision of normal pregnancy, unspecified, first trimester (principal); Z34.90 Encounter for supervision of normal pregnancy, unspecified, unspecified trimester
CPT/HCPCS: 36415; 81220; 81222; 81329; 86787; 86803; 86850; 86900; 86901; 87340; 87389; 85025; 86762; 86780

== ENCOUNTER 2024-01-01 14:26 | Outpatient (REF) | payer OTHER, SELFPAY ==
[2024-01-02 17:31] LABS: Chlamydia Result Negative (Negative); GC Result Negative (Negative)
== END 2024-01-01 14:27 | disposition home or self-care (01) ==
LOC: LBN 14:26
PROVIDERS: PCP Nurse Practitioner Family; Visit Provider Advanced Practice Midwife
DX: O26.891 Other specified pregnancy related conditions, first trimester (principal); N89.8 Other specified noninflammatory disorders of vagina; R39.15 Urgency of urination; Z3A.10 10 weeks gestation of pregnancy
CPT/HCPCS: 87491; 87591; 87086; 87480; 87510; 87660

== ENCOUNTER 2024-02-20 15:39 | Outpatient (REF) | payer OTHER, SELFPAY | END 2024-02-20 15:40 | disposition home or self-care (01) | LOC: LBN 15:39 | PROVIDERS: PCP Nurse Practitioner Family; Visit Provider Advanced Practice Midwife | DX: O26.892 Other specified pregnancy related conditions, second trimester (principal); N89.8 Other specified noninflammatory disorders of vagina; Z3A.12 12 weeks gestation of pregnancy | CPT/HCPCS: 87480; 87510; 87660 ==

== ENCOUNTER 2024-02-26 04:27 | Outpatient (CLI) | payer OTHER, SELFPAY ==
[2024-03-01 15:51] LABS: AFP 83.4 ng/mL; Calculated age at EDD 26 years; Cigarette smoking status non-Smoker; GA used in risk estimate Scan estimate; IVF Pregnancy No; Initial or repeat testing Initial testing; Insulin dependent diabetes No; Maternal Weight 154 lbs; Number of Fetuses 1; Physician Phone Number 802-748-7300; Prev Pregnancy w/NTD No; RECOMMENDED FOLLOW UP None.; Results Summary Normal risk
== END 2024-02-26 04:28 | disposition home or self-care (01) ==
LOC: LBO 04:29
PROVIDERS: PCP Nurse Practitioner Family; Visit Provider Advanced Practice Midwife
DX: Z34.92 Encounter for supervision of normal pregnancy, unspecified, second trimester (principal)
CPT/HCPCS: 36415; 82105

== ENCOUNTER 2024-03-02 16:15 | Outpatient (REF) | payer OTHER, SELFPAY | END 2024-03-02 16:16 | disposition home or self-care (01) | LOC: LBN 16:15 | PROVIDERS: PCP Nurse Practitioner Family; Visit Provider Advanced Practice Midwife | DX: O26.892 Other specified pregnancy related conditions, second trimester (principal); N89.8 Other specified noninflammatory disorders of vagina; Z3A.20 20 weeks gestation of pregnancy | CPT/HCPCS: 87480; 87510; 87660 ==

== ENCOUNTER 2024-03-17 15:04 | Outpatient (REF) | payer OTHER, SELFPAY | END 2024-03-17 15:05 | disposition home or self-care (01) | LOC: LBN 15:04 | PROVIDERS: PCP Nurse Practitioner Family; Visit Provider Obstetrics & Gynecology | DX: Z34.92 Encounter for supervision of normal pregnancy, unspecified, second trimester (principal) | CPT/HCPCS: 87480; 87510; 87660 ==

== ENCOUNTER 2024-03-26 14:20 | Outpatient (REF) | payer OTHER, SELFPAY | END 2024-03-26 14:21 | disposition home or self-care (01) | LOC: LBN 14:20 | PROVIDERS: PCP Nurse Practitioner Family; Visit Provider Advanced Practice Midwife | DX: N89.8 Other specified noninflammatory disorders of vagina (principal) | CPT/HCPCS: 87480; 87510; 87660 ==

== ENCOUNTER 2024-04-12 11:07 | Outpatient (REF) | payer OTHER, SELFPAY | END 2024-04-12 11:08 | disposition home or self-care (01) | LOC: LBN 11:07 | PROVIDERS: PCP Nurse Practitioner Family; Visit Provider Advanced Practice Midwife | DX: N89.8 Other specified noninflammatory disorders of vagina (principal) | CPT/HCPCS: 87480; 87510; 87660 ==

== ENCOUNTER 2024-04-21 03:20 | Outpatient (CLI) | payer OTHER, SELFPAY ==
[2024-04-21 14:33] LABS: HCT 35.6 % (36.0-46.0); HGB 12.2 g/dL (11.2-15.7); MCHC 34.3 % (32.0-36.0); MCV 88 fL (80-95); MPV 9.6 fL (8.0-11.0); Platelet Count 240 10^3/uL (130-400); RBC 4.07 10^6/uL (3.93-5.22); RDW 12.4 % (11.7-14.6); RDW-SD 39.3 fL; WBC 14.17 10^3/uL (4.4-10.8)
[2024-04-21 14:48] LABS: Glucose,1 Hr (Glucola) 113 mg/dL (80-140)
[2024-04-21 15:17] LABS: ALT 24 U/L (14-59); AST 23 U/L (15-37); Albumin 2.4 g/dL (3.4-5.0); Alkaline Phosphatase 127 U/L (46-116); Anion Gap 8.4 mmol/L (3-11); BUN 11 mg/dL (7-18); Bilirubin, Total 0.17 mg/dL (0.2-1.0); CO2 23.6 mmol/L (21.0-32.0); CREATININE 0.8 mg/dL (0.55-1.02); Calcium 8.9 mg/dL (8.5-10.1); Chloride 109 mmol/L (98-107); Estimated GFR 104.15 (mL/min/1.73m2); Glucose 117 mg/dL (74-106); Potassium 3.9 mmol/L (3.5-5.1); Sodium 141 mmol/L (136-145); Total Protein 6.3 g/dL (6.4-8.2)
[2024-04-21 15:50] LABS: Lab Add On Test DONE
[2024-04-21 16:01] LABS: Uric Acid 6.7 mg/dL (2.6-6.0)
[2024-04-23 11:21] LABS: Toxoplasma Ab, IgG Negative (Negative); Toxoplasma Ab, IgM Negative (Negative); Toxoplasma IgG Value <3 IU/mL
== END 2024-04-21 03:21 | disposition home or self-care (01) ==
LOC: LBO 03:20
PROVIDERS: Advanced Practice Midwife; PCP Nurse Practitioner Family; Visit Provider Advanced Practice Midwife
DX: Z34.92 Encounter for supervision of normal pregnancy, unspecified, second trimester (principal); N89.8 Other specified noninflammatory disorders of vagina; Z87.898 Personal history of other specified conditions; O13.2 Gestational [pregnancy-induced] hypertension without significant proteinuria, second trimester
CPT/HCPCS: 36415; 80053; 82950; 85027; 86850; 90384; 84550; 86777; 86778

== ENCOUNTER 2024-04-21 15:36 | Outpatient (CLI) | payer OTHER, SELFPAY ==
[2024-04-21] VITALS (19 sets, daily range): BP systolic 141–179; BP diastolic 81–103; PULSE 71–96; RESP 18; TEMP 36.9–37
[2024-04-21] MEDS: Labetalol 100 MG/20 ML VIAL 20 MG IVP ×3 (16:42→18:32)
--- NOTE | 2024-04-21 16:45 | W.OBCONSULT ---
Date of service: 04/21/24 Time of Service: 16:46 Assessment and Plan Assessment and plan (1) : Status: Acute Assessment and plan: G1, P0 at 27 weeks 3 days (2) Rh negative state in antepartum period: Status: Acute (3) Pre-eclampsia, severe, antepartum: Status: Acute Assessment and plan: Elevated blood pressure today in the office with subsequent severe range blood pressures. IV established. Labetalol given. Consultation with maternal- medicine. Initially no bed availability at [facility]. [facility] contacted awaiting response. Patient will have betamethasone for lung maturity. Magnesium sulfate for neuroprotection and seizure prophylaxis. All questions answered. Awaiting tertiary care response for potential transfer. History of Present Illness History of Present Illness Chief Complaint: Preeclampsia, severe range blood pressures Narrative: Patient is a 24-year-old female G1, P0, at 27 weeks and 3 days. She has been under the care of our midwifery service. She had a visit today in the office with an elevated blood pressure and is sent to the center for further evaluation and treatment. She has had severe range blood pressures most recently 179/103. She had baseline laboratory studies including a CBC, CMP, uric acid, urine protein creatinine ratio, LDH. Her CBC and CMP are normal. Her uric acid is elevated at 6.8 urine protein creatinine ratio is pending at this point and her creatinine is 0.8. She has a category 1 heart rate tracing with a heart tone pattern and 150s no decelerations, moderate variability. We do lengthy conversation today regarding her elevated blood pressure. Attempt was made for transfer to a tertiary care center. Call is pending to the [facility] currently. She is receiving IV labetalol. She will have betamethasone for lung maturity. We would consider magnesium sulfate for both neuroprotection, and seizure prophylaxis for mom. These findings were discussed with the patient at length. All of her questions were answered. Currently, she denies headache though she had one earlier today which is atypical for her. She has no epigastric pain, nausea or vomiting.. Consults Consult date: 04/21/24 Review of Systems All systems reviewed & are unremarkable except as noted in HPI and below Constitutional Constitutional: Reports as per HPI, Reports system reviewed and no additional complaints, except as documented, Reports headache(s), Denies lethargy, Denies malaise and Reports poor appetite Eyes Eyes: Reports system reviewed and no additional complaints, except as documented, Denies blurry vision and Denies diplopia ENT Ears, Nose, Mouth, and Throat: Reports headache(s) Cardiovascular Cardiovascular: Reports system reviewed and no additional complaints, except as documented, Denies irregular heart rhythm, Reports leg edema (Mild, bilateral) and Denies dyspnea Respiratory Respiratory: Reports system reviewed and no additional complaints, except as documented and Denies dyspnea Genitourinary Genitourinary: Reports system reviewed and no additional complaints, except as documented Musculoskeletal Musculoskeletal: Reports system reviewed and no additional complaints, except as documented Neurologic Neurologic: Reports headache(s) PFSH All Active Problems (Updated 04/21/24 @ 16:56 by Alia Dunn DO) Pre-eclampsia, severe, antepartum (Acute) Gestational hypertension (Acute) History of exposure to cat feces (Acute) Vaginal pruritus (Acute) Vaginal discharge during in second trimester (Acute) Bacterial vaginosis in (Acute) Rh negative state in antepartum period (Acute) Vaginal discharge during in first trimester (Acute) History of mandibular surgery (Acute) 05/2023 Family history of kidney stone (Acute) mother and father Dysuria during in first trimester (Acute) Left hip pain (Acute) (Acute) Numbness and tingling in left hand (Acute) Depression (Chronic) Weight gain (Acute) Anxiety (Chronic) Asthma (Chronic) Medical History (Updated 04/21/24 @ 16:56 by Alia Dunn DO) PCOS (polycystic ovarian syndrome) hyperandrogenism and irregular menses. Considering metformin for TTC Hand joint stiff Syncope Family History (Updated 01/01/24 @ 13:37 by Marie Nicholas CNM) Mother Kidney stones Heart murmur during Father Kidney stones Sister Anxiety Brother Anxiety Grandfather Depression Heart disease Grandfather Essential hypertension Stroke Grandmother Essential hypertension Hyperlipidemia Neoplasm BREAST Grandmother Essential hypertension Stroke FAMILY HISTORY Gout Migraine Kidney stones Social History Smoking/Tobacco Use Status: Never Second Hand Exposure: No Smoking risk assessment performed?: Yes Alcohol Intake: current Alcohol Intake frequency: holidays/special occasions only Alcohol type: beer, wine and hard liquor Drug use: Never Substance use type: does not use Adopted: No Caregiver/Support person: No Foster care: No Household members: spouse Housing: house Communication Needs: None Education Level: college Details: Bachelors Degree Do you need help understanding health information?: Rarely 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 Pets and animals: Yes Pets and animals: cat(s) and dog(s) Sexually active: Yes Do you think of yourself as: straight/heterosexual Current gender identity: female What is your relationship status?: How often do you talk on the phone with friends or family?: twice per week How often do you get together with friends or relatives?: once per week Do you belong to any clubs or organized social groups?: no Panel score (0-1 are the most socially isolated patients): 2 What type of physical activity do you participate in: walking, weight lifting and other Details: Gym 4-5x/week, Golf Duration: 45-60 minutes/day Frequency: 5-6 times per week Rona/Buddhism: None Special rona needs: No Agree to transfusion: Yes Seatbelt use: always Helmet use: Yes Helmet use: always Drive intox or ride w/intox driver license agent: No Working smoke detector in home: Yes Carbon monox detector in home: Yes Firearms in home: Yes Firearms unloaded and locked: Yes Do you feel safe at home: Yes Do you feel safe in your relationship?: Yes Victim of physical abuse: No Victim of emotional abuse: No Victim of sexual abuse: No Female Reproductive History Menstrual Age of Menarche: 11 control method: none and condoms History History 1 Para 0 Hx # Term Pregnancies 0 Multiple births 0 Hx # Pregnancies 0 Ectopic pregnancies 0 AB induced 0 Hx Number of Living Children 0 AB spontaneous 0 Exam Const General: cooperative, healthy appearing, comfortable and no acute distress Nutritional Appearance: average body habitus Orientation: alert, awake and oriented x3 HENMT Head: normal to inspection Eyes General: appearance normal, both eyes and all related structures Resp Effort & Inspection: normal respiratory effort, no audible wheezes and no cough Cardio Rate: regular rate Rhythm: regular rhythm GI Other: Gravid, soft, nontender, no rebound or rigidity. Neuro DTR's: Rt Patellar: 3+, Lt Patellar: 3+, Rt Ankle: 3+ and Lt Ankle: 3+ Extrem General: no calf tenderness and edema Laterality: bilateral Results Last Vital Signs Pulse 85 10/16/24 16:44 BP 179/103 H 04/21/24 16:44
[2024-04-21] MEDS: Betamet Acet/Betamet Na Ph Inj. 30 MG/5 ML 12 MG IM (16:49)
[2024-04-21 16:51] LABS: LDH 278 U/L (81-234)
--- NOTE | 2024-04-21 17:31 | DSE_ITS ---
Date of service: 04/21/24 Time of Service: 17:31 DS: Diagnosis Discharge Diagnosis (1) : Status: Acute (2) Rh negative state in antepartum period: Status: Acute (3) Pre-eclampsia, severe, antepartum: Status: Acute Asessment and Plan: Patient is a primigravida at 27 weeks and 3 days with preeclampsia with severe range features. She has received labetalol for hypertension control, 1 dose of betamethasone, and received a 4 g bolus of magnesium will be running at 1 g/h. She will have a Christina catheter in situ. She will be transferred to the [facility] under the care of Dr. Aguayo for ongoing care, maternal- medicine, and neonatology. Discharge Plan Disposition Specific Acute Inpt Facility: [facility] Condition: Good Condition: Critical Discharge Details Reason For Visit: Preeclampsia with severe features, 27 weeks 3 days Attending Provider: Chiquis Bartlett [facility] Hospital Course: Patient is a 24-year-old G1, P0 at 27 weeks and 3 days who was seen by our midwifery service for routine care today. She was noted to have a severe range blood pressure and transferred to the center for ongoing evaluation. Here on the center, she continued to have severe range blood pressures. She received an IV with labetalol, 20 mg with improvement of her blood pressure to 150/90. Baseline laboratory studies were performed with a normal CBC, and CMP. She does have a uric acid elevated at 6.8. Urine protein creatinine ratio is pending. In light of her early gestation, and severe range blood pressures, she will be transferred to a tertiary care facility. She will be transported to the [facility] under the care of Dr. Cruz who accepts for transfer. Risk of transfer, ongoing care were discussed with the patient her partner, and her mother at bedside. Home Meds and New Rx's Prescriptions: No Action albuterol sulfate [ProAir HFA] 90 mcg/actuation HFA aerosol inhaler 2 puff Inhalation q 4hr-6 hr prn Qty: 1 0RF One A Day Women's DHA 28 mg iron- 800 mcg combo pack PO triamcinolone acetonide 0.5 % cream 1 applic Topical BID PRN Qty: 30 0RF Discharge Orders Discharge Orders: Discharge Order (Routine); Ordered 10/16/24 Ordered By: Alia Dunn DS: Summary Time Spent with Patient providing and/or coordinating discharge services: Greater than 30 minutes Status at Discharge Functional status at discharge: bed bound Overall status at discharge: patient is progressing back to baseline Mental Status: mental status grossly normal Speech and Movement: speech and movement normal Mood: congruent mood Affect: normal affect Quality:SDOH Health Related Social Needs: No Data to Display Exam Psych Mental Status: mental status grossly normal Speech and Movement: speech and movement normal Mood: congruent mood Affect: normal affect DS: Data Vitals/I&O Vitals and I&O: Vital Signs Temperature 98.6 F 04/21/24 15:42 Pulse 90 04/21/24 17:22 Pulse 71 04/21/24 15:42 Pulse Rhythm Regular 04/21/24 17:18 Blood Pressure 150/97 H 04/21/24 17:22 Blood Pressure 173/96 04/21/24 15:42 Oxygen Delivery Method Room Air 04/21/24 17:18 Oxygen Flow Rate 0 04/21/24 17:18 Intake & Output 04/20/24 04/21/24 04/21/24 23:59 11:59 23:59 Output Total 850 / 850 Balance -850 / -850 Weight 167 lb Output: Urine 850 / 850 Other: Urine Color Pale Yellow Urine Appearance Clear Urine Odor None Voiding Methods Toilet Data Completed and Pending Labs on day of discharge: Labs from last 24 hours 04/21/24 04/21/24 15:35 14:22 Lactate Dehydrogenase 278 H Ur Random Creatinine Pending U Random Total Protein Pending U [place] Prot/Creat Ratio Pending PFSH All Active Problems (Updated 04/21/24 @ 16:56 by Alia Dunn, DO) Pre-eclampsia, severe, antepartum (Acute) Gestational hypertension (Acute) History of exposure to cat feces (Acute) Vaginal pruritus (Acute) Vaginal discharge during in second trimester (Acute) Bacterial vaginosis in (Acute) Rh negative state in antepartum period (Acute) Vaginal discharge during in first trimester (Acute) History of mandibular surgery (Acute) 05/2023 Family history of kidney stone (Acute) mother and father Dysuria during in first trimester (Acute) Left hip pain (Acute) (Acute) Numbness and tingling in left hand (Acute) Depression (Chronic) Weight gain (Acute) Anxiety (Chronic) Asthma (Chronic) Medical History (Updated 04/21/24 @ 16:56 by Alia Dunn DO) PCOS (polycystic ovarian syndrome) hyperandrogenism and irregular menses. Considering metformin for TTC Hand joint stiff Syncope Family History (Updated 01/01/24 @ 13:37 by Marie Nicholas CNM) Mother Kidney stones Heart murmur during Father Kidney stones Sister Anxiety Brother Anxiety Grandfather Depression Heart disease Grandfather Essential hypertension Stroke Grandmother Essential hypertension Hyperlipidemia Neoplasm BREAST Grandmother Essential hypertension Stroke FAMILY HISTORY Gout Migraine Kidney stones Social History Smoking/Tobacco Use Status: Never Second Hand Exposure: No Smoking risk assessment performed?: Yes Alcohol Intake: current Alcohol Intake frequency: holidays/special occasions only Alcohol type: beer, wine and hard liquor Drug use: Never Substance use type: does not use Adopted: No Caregiver/Support person: No Foster care: No Household members: spouse Housing: house Communication Needs: None Education Level: college Details: Bachelors Degree Do you need help understanding health information?: Rarely 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 Pets and animals: Yes Pets and animals: cat(s) and dog(s) Sexually active: Yes Do you think of yourself as: straight/heterosexual Current gender identity: female What is your relationship status?: How often do you talk on the phone with friends or family?: twice per week How often do you get together with friends or relatives?: once per week Do you belong to any clubs or organized social groups?: no Panel score (0-1 are the most socially isolated patients): 2 What type of physical activity do you participate in: walking, weight lifting and other Details: Gym 4-5x/week, Golf Duration: 45-60 minutes/day Frequency: 5-6 times per week Rona/Rastafarian: None Special rona needs: No Agree to transfusion: Yes Seatbelt use: always Helmet use: Yes Helmet use: always Drive intox or ride w/intox class a regional drivers: No Working smoke detector in home: Yes Carbon monox detector in home: Yes Firearms in home: Yes Firearms unloaded and locked: Yes Do you feel safe at home: Yes Do you feel safe in your relationship?: Yes Victim of physical abuse: No Victim of emotional abuse: No Victim of sexual abuse: No Female Reproductive History Menstrual Age of Menarche: 11 control method: none and condoms History History 1 Para 0 Hx # Term Pregnancies 0 Multiple births 0 Hx # Pregnancies 0 Ectopic pregnancies 0 AB induced 0 Hx Number of Living Children 0 AB spontaneous 0 Time Spent with Patient Time Spent with Patient: >85 minutes Time was spent: preparing to see the patient(eg.review tests), obtaining and/or reviewing separately otained hiistory, ordering medications,tests, procedures, referring, communicating with other health caretaker grounds, indepentently interpreting results, counseling the patient and care coordination
[2024-04-21] MEDS: MAGNESIUM SULFATE 20 GM/500 ML BAG IV_INF (17:48)
[2024-04-21 18:07] LABS: PROTEIN 312.5 mg/dL; Prot/Crea Ur Ratio 11.24
--- NOTE | 2024-04-22 01:03 | NUR.NOTE ---
40 mg Labetalol IV push administered over 4 minutes at 19:24. Administered during ambulance transfer en route to [facility] per hypertension protocol. Audra Mcbride RN present. 40 mg Labetalol IV push adminstered over 4 minutes at 20:22. Administered during ambulance transfer en route to [facility] per hypertension protocol. Audra Mcbride RN present. See transport flow sheet for v.s. and FHR.
--- NOTE | 2024-05-31 14:04 | W.OBNST ---
Date of service: 04/21/24 Time of Service: 16:00 NST Evaluation Reason for NST Reasons for Nonstress Test: GESTATIONAL HYPERTENSION Gestational Age Gestational Age in Weeks and Days: 27 Weeks and 3Days Test and Monitor Explained Test/Monitor Explained: Test Explained and Monitor Explained Vital Signs Blood Pressure: 173/96 Pulse: 71 Temperature: 98.6 F Urine Results Urine Protein: Positive Urine Ketones: Negative Urine Glucose: Negative Urine Blood: Negative NST Information Date on Monitor: 04/21/24 Time on Monitor: 15:40 Date off Monitor: 04/21/24 Time off Monitor: 18:40 Total Time on Monitor: 180 NST Interventions: PO Hydration NST Evaluation Patient States Movement: Present FHR Baseline: 155 Variability: Moderate 6-25 bpm Accelerations: 10x10 Decelerations: Variable Note Ultrasound Done: N/A. NST Note Note: Namita presented to visit today. BP was elevated and she was sent to the Center for NST. Reactive NST. Due to severe range blood pressures, Dr Alia Dunn assumed her care. NST Reviewed and Verified by: Marie Nicholas
[2024-05-31 14:05] VITALS: BP 173/96; PULSE 71; TEMP 37
== END 2024-04-21 18:46 ==
LOC: BCD 15:37 → OBS 15:41
PROVIDERS: Advanced Practice Midwife; PCP Nurse Practitioner Family; Visit Provider Advanced Practice Midwife
DX: Z34.93 Encounter for supervision of normal pregnancy, unspecified, third trimester (principal); O26.899 Other specified pregnancy related conditions, unspecified trimester; Z67.91 Unspecified blood type, Rh negative; O14.10 Severe pre-eclampsia, unspecified trimester
CPT/HCPCS: 96365; 59025; 82565; 83615; 84156; G0378; J0702; J1920; J3475

== ENCOUNTER 2024-06-05 17:50 | Outpatient (REF) | payer OTHER, SELFPAY | END 2024-06-05 17:51 | disposition home or self-care (01) | LOC: LBN 17:50 | PROVIDERS: PCP Nurse Practitioner Family; Visit Provider Nurse Practitioner Family | DX: J02.9 Acute pharyngitis, unspecified (principal) | CPT/HCPCS: 87070 ==